=== PATIENT | female | born 1985 | race Caucasian/White ===

== ENCOUNTER 2021-08-13 07:18 | Emergency (ER) | payer OTHER, MEDICAID, SELFPAY ==
[2021-08-13 07:32] VITALS: BP 110/65; PULSE 63; RESP 18; TEMP 36.3; O2SAT 97; BMI 43.2
--- NOTE | 2021-08-13 08:37 | ED.BACK ---
HPI - Back Pain/Injury General Chief Complaint: Back Pain/Injury Stated Complaint: Lower back pain Time Seen by Provider: 08/13/21 08:21 Source: patient Mode of arrival: ambulatory History of Present Illness HPI Narrative: 36-year-old female with no significant past medical history presenting to the ED complaining of bilateral low back pain s/p getting out of the car yesterday afternoon. Denies direct injury/ trauma or fall. Reports pain intermittently radiates down are LE. Denies associated numbness, tingling, weakness, urinary incontinence / retention. Has been taking Tylenol with minimal relief. MD elicited complaint: back pain Onset (ago): day(s) Related Data Home Medications Medication Instructions Recorded Confirmed citalopram 40 mg tablet 40 mg PO DAILY 03/08/20 03/08/20 doxycycline hyclate 100 mg tablet 100 mg PO BID 03/08/20 03/08/20 famotidine 40 mg tablet mg PO 03/08/20 03/08/20 flu vac qv 2019(18yr up)rc(PF) ml IM 03/08/20 03/08/20 levothyroxine 100 mcg tablet mcg PO 03/08/20 03/08/20 ondansetron 4 mg disintegrating mg PO 03/08/20 03/08/20 tablet propranolol 60 mg capsule,24 60 mg PO DAILY 03/08/20 03/08/20 hr,extended release spironolactone 50 mg tablet 50 mg PO DAILY 03/08/20 03/08/20 sumatriptan succinate 50 mg tablet 50 mg PO DAILY PRN 03/08/20 03/08/20 Previous Rx's Medication Instructions Recorded amoxicillin 875 mg-potassium 1 tab PO BID #20 tab 10/04/20 clavulanate 125 mg tablet (Augmentin) acetaminophen 500 mg tablet 500 mg PO Q6H PRN #14 tab 08/13/21 (Tylenol Extra Strength) cyclobenzaprine 5 mg tablet 5 mg PO Q8H PRN 5 Days #14 tab 08/13/21 naproxen 500 mg tablet 500 mg PO BID PRN 10 Days #20 tab 08/13/21 Allergies Allergy/AdvReac Type Severity Reaction Status Date / Time capsaicin Allergy Unknown Verified 08/13/21 07:31 [From Terocin (with lidocaine)] lidocaine Allergy Unknown Verified 08/13/21 07:31 [From Terocin (with lidocaine)] menthol Allergy Unknown Verified 08/13/21 07:31 [From Terocin (with lidocaine)] methyl salicylate Allergy Unknown Verified 08/13/21 07:31 [From Terocin (with lidocaine)] Review of Systems Review of Systems: Constitutional: No Fever, No Chills ENT/Mouth: No Ear Pain, No Nasal Congestion, No Sinus Pain, No Hoarseness, No sore throat, No Rhinorrhea, No Swallowing Difficulty Cardiovascular: No Chest Pain, No SOB Respiratory: No Cough, No Sputum, No Wheezing Gastrointestinal: No Nausea, No Vomiting, No Diarrhea, No Constipation, No Abdominal pain Genitourinary: No Dysuria, No Urinary Frequency, No Hematuria, No Urinary Incontinence/retention, No Urgency, No Flank Pain Musculoskeletal: + joint pain, No Myalgias, No Joint Swelling Skin: No Skin Lesions, No rash Neuro: No Weakness, No Numbness, No Paresthesias Yes all other systems are reviewed and are negative Neurologic: Denies Sensory deficit (Neuro) [facility] Past Medical History Attestation statement: The following information was validated with the patient. Social History Social History Advance Directives: No Advance Directives Information Provided: No Physical Exam Vital Signs: Vital Signs: Last Vital Signs Temp 97.3 F 08/13/21 07:32 Pulse 63 08/13/21 07:32 Resp 18 08/13/21 07:32 BP 110/65 08/13/21 07:32 Pulse Ox 97 08/13/21 07:32 BMI result Body Mass Index 43.2 Const: General: cooperative, healthy appearing and no acute distress Orientation/consciousness: patient oriented x3 Limitations: no limitations HEENT: Head: Yes normal to inspection and Yes atraumatic Ears: hearing grossly normal bilaterally General nose exam: Normal external nose present Face and sinus: Yes normal facial exam Eyes: General: appearance normal, both eyes and all related structures EOM: EOMs intact bilaterally Neck: Neck: Yes normal visual inspection and Yes no meningeal signs Resp: Effort & Inspection: normal respiratory effort and no respiratory distress Cardio: Rate: regular rate Heart sounds: S1 normal heart sound present and S2 normal heart sound present GI: Inspection: Yes normal to inspection Palpation (GI): Soft to palpation, nontender, no guarding and not rigid : General: Yes no CVA tenderness Back/Spine/Pelvis: Other: No midline thoracic/lumbar spinous tenderness/step-off or deformity. Pain not reproducible on exam Back: no CVA tenderness Skin: Rashes: no rashes Wounds: no wounds Neuro: Other: Strength intact throughout. No saddle anesthesia. Sensation intact to light touch. Neurovascular intact distally General: patient oriented x3, tone normal, moves all extremities, no meningeal signs, no focal motor deficits and CN's II-XI intact bilaterally Gait exam (Neuro): Normal gait present Motor exam (neuro): 5/5 motor strength present throughout Sensory Exam: No Sensory deficit (Neuro) Extrem: General: Yes normal to inspection MDM - Back Pain/Injury MDM Narrative Medical decision making narrative: 36-year-old female with no significant past medical history presenting to the ED complaining of bilateral low back pain s/p getting out of the car yesterday afternoon. on exam vital signs stable, NAD/ nontoxic appearing, no midline spinous tenderness throughout, no red flag symptoms. No saddle anesthesia. Physical exam as above. Concern for MSK pain/ strain for sciatica/radiculopathy. Low concern for cauda equina, cord compression, or epidural abscess plan: Pain management, strict return precautions discussed Differential Diagnosis Differential diagnosis: Likely lumbar radiculopathy, sciatica and strain of lumbar region Medical Records Attestation: I reviewed the patient's medical records. Lab Data Attestation: I reviewed the patient's lab results. Discharge Plan Discharge Clinical Impression: Strain of lumbar region Patient Disposition: Home, Self-Care Instructions: Acute Low Back Pain (ED) Additional Instructions: Your pain is likely musculoskeletal Flexeril is a muscle relaxer, take at night as it makes you drowsy, do not drive, drink alcohol, or operate machinery while taking it Naproxen as an anti-inflammatory / pain medication, take with food In addition take Tylenol at home If symptoms persist or worsen, pain becomes unbearable, you developed urinary retention or incontinence, or weakness return to the ED Prescriptions: New naproxen 500 mg tablet 500 mg PO BID PRN (Reason: pain) 10 Days Qty: 20 0RF cyclobenzaprine 5 mg tablet 5 mg PO Q8H PRN (Reason: pain (scale score 7-10)) 5 Days Qty: 14 0RF acetaminophen [Tylenol Extra Strength] 500 mg tablet 500 mg PO Q6H PRN (Reason: fever or pain) Qty: 14 0RF No Action ondansetron 4 mg tablet,disintegrating PO 0RF doxycycline hyclate 100 mg tablet 100 mg PO BID 0RF famotidine 40 mg tablet PO 0RF spironolactone 50 mg tablet 50 mg PO DAILY 0RF propranolol 60 mg capsule,extended release 24 hr 60 mg PO DAILY 0RF citalopram 40 mg tablet 40 mg PO DAILY 0RF levothyroxine 100 mcg tablet PO 0RF Flublok Quad [id number] (PF) 180 mcg (45 mcg x 4)/0.5 mL syringe IM 0RF sumatriptan succinate 50 mg tablet 50 mg PO DAILY PRN0RF amoxicillin-pot clavulanate [Augmentin] 875-125 mg tablet 1 tab PO BID Qty: 20 0RF Referrals: Physician,Unknown J [Primary Care Provider] - 3 days
[2021-08-13] MEDS: Ketorolac Tromethamine 30 MG/ML VIAL IM (08:50)
[2021-08-13] MEDS: Cyclobenzaprine HCl 10 MG TABLET PO (08:50)
== END 2021-08-13 09:01 | disposition home or self-care (01) ==
PROVIDERS: Emergency Provider Emergency Medicine Emergency Medical Services
DX: S39.012A Strain of muscle, fascia and tendon of lower back, initial encounter (principal); X58.XXXA Exposure to other specified factors, initial encounter; Y93.9 Activity, unspecified; Y92.9 Unspecified place or not applicable; Y99.9 Unspecified external cause status
CPT/HCPCS: 96372; 99283; 99284; J1885